=== PATIENT | male | born 2000 | race American Indian/Alaskan Native ===

== ENCOUNTER 2020-10-31 02:58 | Emergency (ER) | payer SELFPAY ==
[2020-10-31 04:15] LABS: Hematocrit 38.7 % (35.5-45.6); Hemoglobin 12.8 gm/dl (11.8-15.2); Mean Corpuscular HGB Conc 33 % (32-34); Mean Corpuscular Volume 85 fl (84-94); Platelet Count 215 K/mm3 (140-440); Red Blood Count 4.56 M/mm3 (3.65-5.03); Red Cell Distribution Width 12.8 % (13.2-15.2)
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
[2020-10-31 04:37] LABS: Alanine Aminotransferase 15 units/L (7-56); Albumin 4.7 g/dL (3.9-5); BUN/Creatinine Ratio 13; Blood Urea Nitrogen 12 mg/dL (9-20); Calcium 9.5 mg/dL (8.4-10.2); Hemolysis Index 7
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
[2020-10-31] MEDS ORDERED: KETOROLAC 30 MG/1 ML INJ IM ONE (05:18)
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
[2020-10-31 05:49] LABS: Bilirubin,Urine NEG (Negative); Blood,Urine NEG (Negative); Color,Urine Colorless (Yellow); Protein,Urine <15 mg/dL mg/dL (Negative); RBC,Urine < 1.0 /HPF (0.0-6.0); Urobilinogen,Urine < 2.0 mg/dL (<2.0); WBC,Urine < 1.0 /HPF (0.0-6.0)
[2020-10-31 06:04] LABS: Amphetamine Screen,Urine PRESUMPTIVE NEGATIVE; Benzodiazepines Screen,Urine PRESUMPTIVE POSITIVE; Cannabinoid Screen,Urine PRESUMPTIVE POSITIVE; Cocaine Screen,Urine PRESUMPTIVE NEGATIVE; Methadone Screen,Urine PRESUMPTIVE NEGATIVE; Opiate Screen,Urine PRESUMPTIVE NEGATIVE
[2020-10-31 06:56] LABS: Anisocytosis 1+; Platelet Estimate Consistent w Auto; Total Cells Counted 100
[2020-10-31 07:16] VITALS: BP 114/70
== END 2020-10-31 06:15 | disposition home or self-care (01) ==
LOC: ED 02:58
DX: M54.5 Low back pain (principal); R51.9 Headache, unspecified; Z79.899 Other long term (current) drug therapy; V89.2XXA Person injured in unspecified motor-vehicle accident, traffic, initial encounter; Y93.89 Activity, other specified; Y92.488 Other paved roadways as the place of occurrence of the external cause; Y99.8 Other external cause status
CPT/HCPCS: 36415; 70450; 71046; 72072; 72100; 72125; 80053; 80307; 80320; 81001; 85007; 85025; 99284; G0480

== ENCOUNTER 2020-11-26 23:26 | Emergency (ER) | payer OTHER ==
[2020-11-26 23:58] VITALS: BP 127/67
== END 2020-11-27 02:30 | disposition left against medical advice (07) ==
LOC: EDUNIT# → ED 23:26
DX: R00.0 Tachycardia, unspecified (principal); Z53.21 Procedure and treatment not carried out due to patient leaving prior to being seen by health care provider
CPT/HCPCS: 93005

== ENCOUNTER 2020-12-06 20:00 | Emergency (ER) | payer OTHER ==
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
[2020-12-06 20:29] VITALS: BP 128/84
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
--- NOTE | 2020-12-07 13:21 | Electrocardiograph Report ---
[facility] Test Date: 2020-12-06 Test Time: 20:29:14 Pat Name: ABIGAIL OWEN Department: Room: Gender: M Gopherman: JAIME : 2000 Requested By: SILVIA LEBRON Order Number: [id number] Reading MD: Radha Jolley Measurements Intervals [place] Rate: 69 P: 72 ID: [id number] QRS: 64 QRSD: 97 T: 52 QT: 380 QTc: 407 Interpretive Statements Sinus rhythm Normal ECG No previous ECG available for comparison Electronically Signed On 12-07-2020 13:21:11 EDT by Radha Jolley
== END 2020-12-07 04:31 | disposition left against medical advice (07) ==
LOC: ED 20:00
DX: R07.89 Other chest pain (principal); Z53.21 Procedure and treatment not carried out due to patient leaving prior to being seen by health care provider
CPT/HCPCS: 71046; 93005